=== PATIENT | female | born 1965 | race Hispanic/Latino ===

== ENCOUNTER → 2018-02-11 | Day surgery (SDC) | payer BC ==
[~2018-02-11] MED LIST: AMLODIPINE BESYL5 MG PO; ASPIRIN81 MG; ATORVASTATIN CA40 MG PO; CARVEDILOL25 MG PO; CLONIDINE HCL0.1 MG PO; CLOPIDOGREL75 MG PO; DICYCLOMINE HCL10 MG; FENTANYL CITRATE/PF 100MCG/2 ML INJ ONE; INVOKANA PO; JANUVIA100 MG PO; LIDOCAINE HCL 2% LOCAL INJ 5 ML SDV VIAL INJ ONE; LOSARTAN POTAS100 MG PO; METFORMIN HCL500 MG PO; MICROGESTIN FE1 EACH PO; MIDAZOLAM HCL 2 MG/2 ML VIAL ONE; OMEPRAZOLE20 MG PO; PANTOPRAZOLE SO20 MG; PROPOFOL IV EMULSION 10 MG/ML 50 ML VIAL ONE; VITAMIN D32000 UNIT PO
--- OUTSIDE RECORDS SUMMARY | 2018-02-11 07:08 | XMS REPORT | Clinical Summary ---
Author Author [facility] Organization [facility] Address Unknown Phone Unavailable Care Team Providers Care Rod Piler Name Role Phone Asked, Pcp PCP Unavailable Allergies Active Allergy Reactions Severity Noted Date Comments Ibuprofen Hives 03/10/2017 Current Medications Prescription Sig. Disp. Refills Start End Date Status Date amLODIPine (NORVASC) 5 mg TK 1 T PO BID 3 01/20/20 Active tablet 17 atorvastatin (LIPITOR) 80 TK 1 T PO QD 0 02/10/20 Active MG tablet 17 INVOKANA 300 mg tablet TK 1 T PO QD UTD 3 02/28/20 Active 17 carvedilol (COREG) 25 MG TK 1 T PO BID 3 12/15/19 Active tablet 17 clopidogrel (PLAVIX) 75 TK 1 T PO QD 3 12/10/19 Active mg tablet 17 dicyclomine (BENTYL) 20 TK 1 T PO TID 2 03/04/20 Active mg tablet 17 fluconazole (DIFLUCAN) TK 1 T PO AND THEN A 0 01/28/20 Active 150 MG tablet SECOND T 72 H LATER 17 losartan (COZAAR) 100 MG TK 1 T PO QD 2 02/10/20 Active tablet 17 metFORMIN XR TK 1 T PO BID 3 02/10/20 Active (GLUCOPHAGE-XR) 500 mg 24 17 hr tablet pantoprazole (PROTONIX) 0 02/28/20 Active 40 MG EC tablet 17 norethindrone-e.estradiol Take 1 tablet by mouth 28 tablet 14 Active -iron (MICROGESTIN FE daily. Take in a 17 1.5/30, 28,) 1.5 mg-30 continuous fashion. mcg (21)/75 mg (7) tablet norethindrone ac-eth Take 1 tablet by mouth 21 each 0 01/19/20 03/10 Discontin estradiol (MICROGESTIN daily. Take in a 17 17 ued 1.5/30, 21,) 1.5-30 continuous fashion. mg-mcg tabletIndications: Encounter for surveillance of contraceptive pills MICROGESTIN FE 1.5/30, TAKE 1 TABLET BY MOUTH 28 tablet 0 03/03/20 03/10/20 Discontin 28, 1.5 mg-30 mcg (21)/75 EVERY DAY 17 17 ued mg (7) tablet norethindrone-e.estradiol Take 1 tablet by mouth 28 tablet 0 03/10/20 03/10/20 Discontin -iron (MICROGESTIN FE once daily. Take in a 17 17 ued 1.5/30, 28,) 1.5 mg-30 continuous fashion. mcg (21)/75 mg (7) tablet fluconazole (DIFLUCAN) Take 1 tablet (150 mg 1 tablet 0 03/17/20 150 MG tablet total) by mouth once for 17 17 1 dose. Active Problems Problem Noted Date Secondary hypertension 03/10/2017 Diabetes mellitus 03/10/2017 Hyperlipidemia 03/10/2017 Encounters Date Type Specialty Care Team Description 02/04/2018 Refill Obstetrics and Gynecology Ariel Hunter MD 03/17/2017 Orders Only Obstetrics and Gynecology Maxine Tovar MA 03/16/2017 Telephone Obstetrics and Gynecology Ariel Hunter MD 03/10/2017 Office Visit Obstetrics and Gynecology Ariel Hunter MD Well woman exam with routine gynecological exam (Primary Dx); Breast cancer screening; Contraceptive surveillance 03/03/2017 Refill Obstetrics and Gynecology Ariel Hunter MD after 02/10/2017 Social History Tobacco Use Types Packs/Day Years Used Date Never Smoker Sex Assigned at Date Recorded Not on file Last Filed Vital Signs Vital Sign Reading Time Taken Blood Pressure 145/77 03/10/2017 10:11 AM CDT Pulse 83 03/10/2017 10:11 AM CDT Temperature - - Respiratory Rate - - Oxygen Saturation - - Inhaled Oxygen - - Concentration Weight 81.6 kg (180 lb) 03/10/2017 10:11 AM CDT Height 154.9 cm (5' 1") 03/10/2017 10:11 AM CDT Body Mass Index 34.01 03/10/2017 10:11 AM CDT Plan of Treatment Health Maintenance Due Date Last Done Comments MAMMOGRAM 1963 FOOT EXAM 1973 OPHTHALMOLOGY EXAM 1973 URINE MICROALBUMIN 1973 COLONOSCOPY 2013 INFLUENZA VACCINE 05/26/2018 PAP SMEAR 03/17/2020 03/17/2017 Results * THINPREP TIS PAP AND HPV mRNA E6/E7 REFLEX HPV 16,18/45 (03/17/2017) Specimen Performing Laboratory Swab after 02/10/2017 Insurance Payer Benefit Subscriber ID Type Phone Address Plan / Group BCBS BCBS xxxxxxxxxxxx PPO CHOICE PPO/[employer] PPO Home: [id number] [place] [phone]
--- NOTE | 2018-02-11 09:58 | Operative Report ---
DATE OF PROCEDURE: February 11, 2018 REFERRING PHYSICIAN: Dr. Hamilton Smart PROCEDURES PERFORMED 1. Esophagogastroduodenoscopy with esophageal dilatation and biopsies. 2. Colonoscopy with biopsies. INDICATIONS FOR EGD: Dysphagia. INDICATIONS FOR COLONOSCOPY: Colorectal cancer screening, personal history of colon polyp, alternating bouts of constipation and diarrhea. MEDICATION: Patient was done under MAC. Please see anesthesiologist's note. PROCEDURE: With the patient in the left lateral decubitus position, the flexible fiberoptic Olympus gastroscope was introduced into the esophagus under direct visualization without any difficulty. There was some patchy erythema noted in the distal esophagus. There was a mild stricture noted at the GE junction that was dilated to size 52-[place] Brantley. The scope was then advanced with ease into the stomach traversing a small sliding hiatal hernia. The mucosa overlying the antrum and the body revealed some patchy erythema and mild to moderate edema, and biopsies were obtained and sent to stain for H. pylori. Some hyperplastic appearing polyps were noted in the body of the stomach and some were partially excised with the cold biopsy forceps. Pylorus appeared to be of normal contour and shape. It was intubated with ease. The scope was advanced all the way to the 2nd portion of the duodenum. The scope was then withdrawn slowly, and biopsies were obtained from proximal 2nd portion to rule out sprue considering the patient's history of diarrhea. Mucosa overlying the duodenal bulb appeared to be within normal limits. The scope was then withdrawn back into the stomach and retroflexed. The mucosa overlying the fundus and the cardia appeared to be within normal limits. The scope was then straightened out. The stomach was decompressed. The scope was subsequently withdrawn. Patient tolerated the procedure well. IMPRESSION 1. Mild distal esophagitis. 2. 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 3. Small sliding hiatal hernia. 4. Gastritis, biopsied. Biopsies sent to stain for Helicobacter pylori. 5. Gastric polyps, some partially excised with the cold biopsy forceps. PLAN: Follow up histology. Increase Protonix to 40 mg 1 p.o. q.a.m. a.c. Patient was then turned around. After adequate lubrication of the anal canal, a flexible fiberoptic Olympus colonoscope was inserted into the rectum with ease and advanced all the way to the cecum. Mucosa overlying the cecum appeared to be within normal limits. The ileocecal valve was intubated. The scope was advanced into the terminal ileum. Biopsies were obtained. The scope was then withdrawn back into the colon. It was then withdrawn slowly. Mucosa overlying the ascending and the transverse appeared to be within normal limits. Mucosa overlying the left colon, as well as that of the rectum revealed some mild patchy inflammatory changes. Multiple random biopsies were obtained. Scattered diverticular disease was noted in the left colon, but more prominent in the sigmoid colon. The scope was then retroflexed into the distal rectum. Small internal hemorrhoids were noted, none of which was actively bleeding. The scope was then straightened out. The rectosigmoid area, as well as the distal rectal area were decompressed. The scope was subsequently withdrawn. Patient tolerated the procedure well. IMPRESSION 1. Mild patchy left-sided colitis. 2. Diverticulosis. 3. Small internal hemorrhoids, none actively bleeding. PLAN: Follow up histology. Initiate Bentyl 10 mg 1 p.o. t.i.d. VSL #3D one p.o. daily. Patient will need a followup colonoscopy in 3-5 years. Job#: [id number] MACY cc:CAITLIN SMART DO
== END | disposition home or self-care (01) ==
LOC: ENDO 07:06
PROVIDERS: ATTEND Internal Medicine Gastroenterology
DX: K29.70 Gastritis, unspecified, without bleeding (principal); K31.7 Polyp of stomach and duodenum; K22.2 Esophageal obstruction; K51.50 Left sided colitis without complications; K20.9 Esophagitis, unspecified; K21.9 Gastro-esophageal reflux disease without esophagitis; K44.9 Diaphragmatic hernia without obstruction or gangrene; K57.30 Diverticulosis of large intestine without perforation or abscess without bleeding; K59.00 Constipation, unspecified; K64.8 Other hemorrhoids; I25.10 Atherosclerotic heart disease of native coronary artery without angina pectoris; I10 Essential (primary) hypertension; E78.5 Hyperlipidemia, unspecified; E11.9 Type 2 diabetes mellitus without complications; F41.9 Anxiety disorder, unspecified; Z79.82 Long term (current) use of aspirin; Z79.02 Long term (current) use of antithrombotics/antiplatelets; Z95.5 Presence of coronary angioplasty implant and graft
CPT/HCPCS: 36415; 43239; 43450; 45380; 81025; 82948; J2001; J2250; 45378

== ENCOUNTER → 2021-08-29 | Day surgery (SDC) | payer BC ==
[2021-08-26 11:52] LABS: BASOPHILS % 0.7 % (0.0-1.0); EOSINOPHILS # (AUTO) 0.1 (0.0-0.4); EOSINOPHILS % 1.5 % (0.0-6.0); HEMATOCRIT 36.8 % (34.2-44.1); HEMOGLOBIN 11.7 g/dL (12.0-16.0); LYMPHOCYTES # (AUTO) 1.7 (1.0-3.2); LYMPHOCYTES % 29.2 % (18.0-39.1); MEAN CORPUSCULAR HEMOGLOBIN 28.2 pg (28-32); MEAN CORPUSCULAR HGB CONC 31.8 g/dL (31-35); MEAN CORPUSCULAR VOLUME 88.7 fL (81-99); MONOCYTES # (AUTO) 0.4 (0.2-0.8); MONOCYTES % 6.5 % (4.4-11.3); NEUTROPHILS # (AUTO) 3.6 (2.1-6.9); NEUTROPHILS % 61.8 % (38.7-80.0); PLATELET COUNT 191 x10e3/uL (140-360); RED BLOOD COUNT 4.15 x10e6/uL (3.6-5.1)
[~2021-08-29] MED LIST changes: +BUPROPION HCL; +CLONAZEPAM0.5 MG PO; -FENTANYL CITRATE/PF 100MCG/2 ML INJ ONE; +GLUCAGON FOR INJ 1 MG VIAL ONE; +HYOSCYAMINE SULFATE 0.5 MG/ML INJ ONE; +LEXAPRO5 MG PO; +LIPITOR20 MG PO; +PROPOFOL IV EMULSION 10 MG/ML 20 ML VIAL ONE; -PROPOFOL IV EMULSION 10 MG/ML 50 ML VIAL ONE; +TRULICITY0.75 MG/0.
[2021-08-29 11:45] VITALS: BP 130/84
== END | disposition home or self-care (01) ==
LOC: OR 08:24
PROVIDERS: ATTEND Internal Medicine Gastroenterology
DX: Z09 Encounter for follow-up examination after completed treatment for conditions other than malignant neoplasm (principal); Z86.010 Personal history of colon polyps; K52.9 Noninfective gastroenteritis and colitis, unspecified; K57.30 Diverticulosis of large intestine without perforation or abscess without bleeding; K62.89 Other specified diseases of anus and rectum; K64.8 Other hemorrhoids; E66.9 Obesity, unspecified; E11.9 Type 2 diabetes mellitus without complications; I25.10 Atherosclerotic heart disease of native coronary artery without angina pectoris; I10 Essential (primary) hypertension; E78.5 Hyperlipidemia, unspecified; F41.9 Anxiety disorder, unspecified; Z88.8 Allergy status to other drugs, medicaments and biological substances; Z01.812 Encounter for preprocedural laboratory examination; Z20.822 Contact with and (suspected) exposure to COVID-19; Z79.02 Long term (current) use of antithrombotics/antiplatelets; Z79.82 Long term (current) use of aspirin; Z79.84 Long term (current) use of oral hypoglycemic drugs; Z95.5 Presence of coronary angioplasty implant and graft
CPT/HCPCS: 36415; 45378; 45380; 82948; 85025; J1610; J1980; J2001; J2250; U0002

== ENCOUNTER → 2024-07-14 | Outpatient (REF) | payer BC ==
[~2024-07-14] MED LIST changes: -GLUCAGON FOR INJ 1 MG VIAL ONE; -HYOSCYAMINE SULFATE 0.5 MG/ML INJ ONE; -LIDOCAINE HCL 2% LOCAL INJ 5 ML SDV VIAL INJ ONE; -MIDAZOLAM HCL 2 MG/2 ML VIAL ONE; -PROPOFOL IV EMULSION 10 MG/ML 20 ML VIAL ONE
== END ==
LOC: DX 15:36
PROVIDERS: ATTEND Internal Medicine
DX: M81.0 Age-related osteoporosis without current pathological fracture (principal)
CPT/HCPCS: 77080